=== PATIENT | female | born 1980 | race Caucasian/White ===

== ENCOUNTER 2023-10-21 19:01 | Inpatient (IN) | payer OTHER, SELFPAY ==
[2023-10-21] VITALS (8 sets, daily range): BP systolic 105–143; BP diastolic 66–90; BMI 42.2; BMI 42.3
[2023-10-21 14:00] LABS: Urine Albumin Negative (Neg - Trace); Urine Bilirubin Negative (Negative); Urine Character Clear (Clear); Urine Color Yellow; Urine Glucose Negative (Negative); Urine Ketone Negative (Negative); Urine Leukocyte 1+ (Negative); Urine Nitrite Negative (Negative); Urine Occult Blood Negative (Negative); Urine Specific Gravity 1.025 (<1.030); Urine Urobilinogen Negative (Neg - 1+)
[2023-10-21 14:37] LABS: Urine Red Blood Cell 0-2 /HPF (0-2); Urine Squamous Cell >30 /LPF (Few); Urine White Cell 0-2 /HPF (0-5)
[2023-10-21 14:48] LABS: HCG, Urine Qualitative Screen Negative
[2023-10-21 14:54] LABS: % Basophils 0.4 % (0-2); % Eosinophils 1.1 % (0-6); % Immature Granulocytes 0.3 % (0-0.5); % Lymphocytes 26.7 % (20.5-51.1); % Neutrophils 65.5 % (42.2-75.2); Absolute Eosinophils 0.1 10^3/uL (0-0.7); Absolute Lymphocytes 1.9 10^3/uL (1.2-3.4); Absolute Monocytes 0.4 10^3/uL (0.1-0.6); Absolute Neutrophils 4.6 10^3/uL (1.4-6.5); Hematocrit 32.4 % (37.0-47.0); Hemoglobin 11.2 g/dL (12.0-16.0); Mean Corp Hgb Conc. 34.6 g/dL (33.0-37.0); Mean Corpuscular Hgb 28.1 pg (27.0-31.0); Mean Corpuscular Volume 81.4 fL (81.0-99.0); Mean Platelet Volume 9.1 fL (7.4-10.4); Nucleated Red Blood Cells % 0 %; Platelet Count 275 10^3/uL (130-400); Red Blood Cell Count 3.98 10^6/uL (4.20-5.40); Red Cell Dist. Width 13.3 % (11.5-14.5)
[2023-10-21 15:03] LABS: HCG, Serum Qualitative Screen Negative
[2023-10-21 15:07] LABS: ALT (SGPT) 19 U/L (0-35); AST (SGOT) 21 U/L (14-36); Albumin 3.8 g/dl (3.5-5.0); Alkaline Phosphatase 65 U/L (38-126); Blood Urea Nitrogen 15 mg/dl (7-17); Calcium 9.3 mg/dl (8.4-10.2); Carbon Dioxide 25 mmol/L (22-30); Chloride 105 mmol/L (98-107); Estimated Creatinine Clearance > 125 ml/min; Glucose 88 mg/dl (70-99); Potassium 4.9 mmol/L (3.5-5.1); Sodium 134 mmol/L (135-145); Total Bilirubin 0.4 mg/dl (0.2-1.3); Total Protein 6.2 g/dl (6.3-8.2); eGFR > 60.00
[2023-10-21] MEDS: TORADOL 30 MG IV (15:36)
--- NOTE | 2023-10-21 16:19 | ED.GENMED ---
History of Present Illness
<Aayush Phan Jr., PA-C - Last Filed: 10/21/23 18:09>
General
Chief Complaint: Flank Pain
Source: patient
Exam Limitations: none
Time Seen by Provider: 10/21/23 14:24
Nursing documentation reviewed up to this point in time: agreed with
History of Present Illness
History of Present Illness:
43-year-old female presenting with right lower quadrant abdominal pain initially intermittent. She has been seen by compugraph operator that she has been. Was unsure of the specific cause of her symptoms. Over the trace admission. Denies any fevers chest
pain.
Review of Systems
<Aayush Phan Jr., PA-C - Last Filed: 10/21/23 18:09>
Review of Systems
Allergies reviewed?: Yes
All Other Systems: ROS reviewed and negative except as documented in HPI and ROS
Phy Exam
<Aayush Phan Jr., PA-C - Last Filed: 10/21/23 18:09>
Physical Exam
Physical Exam:
GENERAL: Alert , in no apparent distress
EYE: pupils equal and reactive
NECK: Supple, no significant adenopathy.
ENT: o/p clr, mmm.
CARDIAC: Regular rate and rhythm .
LUNGS: Clear breath sounds bilaterally, no acute respiratory distress, no wheezes/rales/rhonchi
ABDOMEN: Reproducible right lower quadrant pelvic pain soft benignOtherwise.
NEUROLOGICAL: Alert and oriented, no focal neuro deficits
SKIN: Warm and dry, skin intact.
MUSCULOSKELETAL: No edema, well perfused.
PSYCH: Normal and appropriate interaction.
Course
<Aayush Phan Jr., PA-C - Last Filed: 10/21/23 18:09>
Orders/Labs/Results
Orders:
Orders
10/21/23 13:52
HCG, Urine Qualitative Screen Urgent
Date Specimen was Collected: 10/21/23
Time Specimen was Collected: 13:46
Comment: ADD ON
Urinalysis Reflex To Culture Urgent
Date Specimen was Collected: 10/21/23
Time Specimen was Collected: 13:46
Urine Microscopic Reflex Cult Urgent
Urine Culture Urgent
CLARISA Source: U
Specimen Description:
Date Specimen was Collected: 10/21/23
Time Specimen was Collected: 13:46
10/21/23 14:24
Add On- LAB Urgent
Tests Added?: urine hcg
10/21/23 14:25
Test Result ONCE
10/21/23 14:42
Beta Hcg Serum Qualitative Screen [HCG, Serum Qualitative Screen] Urgent
CBC/With Diff [Complete Blood Count/With Diff] Urgent
CMP [Comprehensive Metabolic Panel] Urgent
10/21/23 15:20
CT Abd/Pel (IV only)-DH only Urgent
Comment:
Reason For Exam: RLQ pain
10/21/23 15:21
Ketorolac [Toradol] 30 mg IV NOW STA
10/21/23 17:55
Piperacillin/Tazo 3.375 Gram [Zosyn] 3.375 gram in 50 ml IV NOW
10/21/23 18:26
Admit/Transfer Patient As Directed
Co-Sign Provider:
Level of Care: Inpatient admission
Assign to:: Medical/Surgical
Physician / Group: Brandi Parker
Diagnosis: possible acute appendicitis
Reason for Hospitalization: possible acute appendicitis - IVF, IV Abx, pain control with IV agents, surgical
evaluation
Expected length of stay greater than two midnights?: Yes
ELOS- Estimated Length of Stay in days: 2
I certify the patient meets the requirements for IP care: Yes
Code Status As Directed
Resuscitation Status: Full Code
PRN Pain Medication Management As Directed
May give lesser potent ordered pain med per pt: Yes
preference::
Protocol:: Medication orders for pain may be administered in a
manner that supports deferring to patient preference
when the pt is:
- Requesting an ordered lesser potent pain medication.
Least to most potent pain medications are defined
as: acetaminophen < NSAID < tramadol < opioids
(morphine, oxycodone, hydromorphone).
- Requesting a lesser dose of the same medication IF
ORDERED.
- Requesting a less intrusive route of administration
if both routes are prescribed by the provider (PO <
IV).
Abnormal Lab Results
10/21/23 10/21/23
13:52 14:42
RBC 3.98 L 10^6/uL
(4.20-5.40)
Hgb 11.2 L g/dL
(12.0-16.0)
Hct 32.4 L %
(37.0-47.0)
Sodium 134 L mmol/L
(135-145)
Total Protein 6.2 L g/dl
(6.3-8.2)
Leukocyte Esterase Rfl 1+ A
(Negative)
10/21/23 14:42
10/21/23 14:42
Vital Signs
Initial and Last Documented VS:
Initial Vital Signs
Temp Pulse Resp BP Pulse Ox
98 F 76 18 143/88 98
10/21/23 13:42 10/21/23 13:42 10/21/23 13:42 10/21/23 13:42 10/21/23 13:42
Last Documented Vital Signs
Temp Pulse Resp BP Pulse Ox
98 F 71 18 114/76 97
10/21/23 13:42 10/21/23 17:19 10/21/23 17:19 10/21/23 19:00 10/21/23 19:00
<Joaquim Boyd, DO - Last Filed: 10/21/23 19:49>
Orders/Labs/Results
Orders:
Orders
10/21/23 13:52
HCG, Urine Qualitative Screen Urgent
Date Specimen was Collected: 10/21/23
Time Specimen was Collected: 13:46
Comment: ADD ON
Urinalysis Reflex To Culture Urgent
Date Specimen was Collected: 10/21/23
Time Specimen was Collected: 13:46
Urine Microscopic Reflex Cult Urgent
Urine Culture Urgent
CLARISA Source: U
Specimen Description:
Date Specimen was Collected: 10/21/23
Time Specimen was Collected: 13:46
10/21/23 14:24
Add On- LAB Urgent
Tests Added?: urine hcg
10/21/23 14:25
Test Result ONCE
10/21/23 14:42
Beta Hcg Serum Qualitative Screen [HCG, Serum Qualitative Screen] Urgent
CBC/With Diff [Complete Blood Count/With Diff] Urgent
CMP [Comprehensive Metabolic Panel] Urgent
10/21/23 15:20
CT Abd/Pel (IV only)-DH only Urgent
Comment:
Reason For Exam: RLQ pain
10/21/23 15:21
Ketorolac [Toradol] 30 mg IV NOW STA
10/21/23 17:55
Piperacillin/Tazo 3.375 Gram [Zosyn] 3.375 gram in 50 ml IV NOW
10/21/23 18:26
Admit/Transfer Patient As Directed
Co-Sign Provider:
Level of Care: Inpatient admission
Assign to:: Medical/Surgical
Physician / Group: Brandi Taylor - Hospitalists
Diagnosis: possible acute appendicitis
Reason for Hospitalization: possible acute appendicitis - IVF, IV Abx, pain control with IV agents, surgical
evaluation
Expected length of stay greater than two midnights?: Yes
ELOS- Estimated Length of Stay in days: 2
I certify the patient meets the requirements for IP care: Yes
Code Status As Directed
Resuscitation Status: Full Code
PRN Pain Medication Management As Directed
May give lesser potent ordered pain med per pt: Yes
preference::
Protocol:: Medication orders for pain may be administered in a
manner that supports deferring to patient preference
when the pt is:
- Requesting an ordered lesser potent pain medication.
Least to most potent pain medications are defined
as: acetaminophen < NSAID < tramadol < opioids
(morphine, oxycodone, hydromorphone).
- Requesting a lesser dose of the same medication IF
ORDERED.
- Requesting a less intrusive route of administration
if both routes are prescribed by the provider (PO <
IV).
Abnormal Lab Results
10/21/23 10/21/23
13:52 14:42
RBC 3.98 L 10^6/uL
(4.20-5.40)
Hgb 11.2 L g/dL
(12.0-16.0)
Hct 32.4 L %
(37.0-47.0)
Sodium 134 L mmol/L
(135-145)
Total Protein 6.2 L g/dl
(6.3-8.2)
Leukocyte Esterase Rfl 1+ A
(Negative)
10/21/23 14:42
10/21/23 14:42
Vital Signs
Initial and Last Documented VS:
Initial Vital Signs
Temp Pulse Resp BP Pulse Ox
98 F 76 18 143/88 98
10/21/23 13:42 10/21/23 13:42 10/21/23 13:42 10/21/23 13:42 10/21/23 13:42
Last Documented Vital Signs
Temp Pulse Resp BP Pulse Ox
98 F 71 18 114/76 97
10/21/23 13:42 10/21/23 17:19 10/21/23 17:19 10/21/23 19:00 10/21/23 19:00
<Aayush Phan Jr., PA-C - Last Filed: 10/21/23 18:09>
MDM/Problems Addressed
MDM/Problems Addressed:
41-year-old female presenting to the emergency department concerns of ongoing right lower quadrant abdominal pain intermittent over the past few weeks or so the past few days. Had recent pelvic ultrasound showing right-sided sided ovarian cyst but
was concerned this was potentially an alternate abdominal process. Denies urinary symptoms change in bowel movements fevers chest pain or shortness of breath. CT scan showing findings possibly consistent with appendicitis though it is somewhat
unclear. Case was discussed with general surgery recommends if symptoms are ongoing progressive should watch overnight n.p.o. at midnight and reassess in the morning for possibility of surgery though timeframe does not sound in line with acute
appendicitis. This was discussed with patient who elected to stay overnight for reassessment in the morning. Stable throughout ER stay. started On antibiotics.
<Aayush Phan Jr., PA-C - Last Filed: 10/21/23 18:09>
*Critical Care Note
Total Time (30-74mins, 75-104mins- exclusive of procedures): Not Applicable
ED Attending Note
<Aayush Phan Jr., PA-C - Last Filed: 10/21/23 18:09>
-
Portions of this chart may have been created with voice recognition software.� Occasional wrong word or��sound alike� substitutions may have occurred due to the inherent limitations of voice recognition software.
<Joaquim Boyd DO - Last Filed: 10/21/23 19:49>
ED Attending Note
I performed the substantive portion of visit, reviewed & personally made and approve the management plan that is documented in note by myself or CALIN.: Yes
ED Attending Note:
Equivocal findings for appendicitis by CT. Case reviewed with CALIN. Admit for surgical evaluation and continued monitoring
Discharge Plan
Departure
Patient Disposition: Admit
Date of Disposition: 10/21/23
Time of Disposition: 18:08
Admit to: Med/Surg
Admit to doctor: Renard
Presentation/result/management discussed w/ accepting MD/DO: Hospitalist
Patient with high blood pressure during this ER visit?: No
Condition: Good
Covid-19: Not Applicable
Discharge Problem:
Right lower quadrant abdominal pain
Interventions
Interventions:
*Risk Screen - Suicide Last Done: 10/21/23 13:42
*General Assessment Last Done: 10/21/23 13:42
*Neglect/Abuse Screening Last Done: 10/21/23 13:42
ED- Fall Risk Assessment Last Done: 10/21/23 19:45
*ED COVID-19 Vaccine History Last Done: 10/21/23 14:35
*Nursing Disposition Last Done: 10/21/23 19:45
EV-Nzbzlt-Khmsbvmyqq Assessment Last Done: 10/21/23 14:37
ED-Female Genitourinary Assessment Last Done: 10/21/23 14:37
Discharge Date and Time
Discharge Date/Time: 10/21/23 19:45
--- NOTE | 2023-10-21 18:18 | HPS.HSE ---
Family Physician
-
Family Physician: Jason Madsen
Chief Complaint
-
abd pain
History of Present Illness
43 y/o F, hx of obesity on Wegovy, former smoker, presents to ER for Right lower quadrant. Reports pain is 7/10, RLQ, with some radiation. Pain is intermittent in nature. Feels like a sharp pain. + associated nausea/vomiting. No fever/chills. No
other complaints. She is on Wegovy for past 6 months, no new recent meds. No changes in bowel habits (last BM 2 days ago). No NSAIDs.
Medical History
Past Medical History
Past Medical History: Reports Other (obesity on Wegovy, former smoker)
Past Surgical History: Reports
Social History
Tobacco: Former Smoker
Alcohol: Occasional
Drug: None
Personal:
Living: With Family
Employment: Employed
Family History
Family History: Not pertinent
Allergies / Home Medications
Allergies reflects when Allergies were last updated in [facility].
Home Medications with original date entered in [facility]
Allergy/Medication List:
Allergies
Allergy/AdvReac Type Severity Reaction Status Date / Time
No Known Allergies Allergy Unverified 10/21/23 13:42
Home Medications
semaglutide (weight loss) 2.4 mg/0.75 mL subcutaneous pen injector (Wegovy) 2.4 mg SC WE 10/21/23
Review of Systems
-
A 12 point ROS was completed and negative except as noted: Yes
Physical Exam
Vital Signs
Vital Signs
Temp Pulse Resp BP Pulse Ox
98 F 71 18 120/84 97
10/21/23 13:42 10/21/23 17:19 10/21/23 17:19 10/21/23 17:16 10/21/23 17:17
Physical Exam
General: Pain and Obese
HEENT: NormoCephalic and Anicteric
Respiratory: No Wheezes or Rales
Cardiac: S1/S2 and Regular Rhythm
GI: Non Distended and Tender (RLQ)
Neuro: AO x 3
Hematologic/Lymphatic: No Lymphadenopathy
Psych: Calm
Laboratory Results
-
10/21/23 14:42
10/21/23 14:42
Laboratory Results
Total Bilirubin 0.4 mg/dl (0.2-1.3) 10/21/23 14:42
AST 21 U/L (14-36) 10/21/23 14:42
ALT 19 U/L (0-35) 10/21/23 14:42
Alkaline Phosphatase 65 U/L (38-126) 10/21/23 14:42
Data Reviewed
-
CT Scan: Report Reviewed by me
Lab Data: Labs Reviewed by me
Impression/Plan
-
Assessment:
RLQ pain
- CT: rounded distal appendix, measuring up to 14 mm. Perhaps minimal subtle stranding adjacent to the enlarged distal appendix. One consideration would be a distal tip appendicitis. Main differential consideration would be a focal mucocele.
- GS consulted; recommended NPO p MN and they will evaluate in AM
- for now will continue pain control
- continue IVF
- continue IV Zosyn
Morbid Obesity d/t excess calories
- encourage weight loss
- she is on Wegovy x 6 months, tolerating well
- OP f/u
Anemia, unknown chronicity
- check workup labs
DVT ppx: SCDs
Code: Full
[2023-10-21] MEDS: ZOSYN 50 IV (18:34)
[2023-10-21] MEDS: NSS 1000 IV (20:44)
[2023-10-21] MEDS: TYLENOL 650 MG PO (21:44)
[2023-10-22] MEDS: ZOSYN 50 IV ×2 (00:27→05:18)
[2023-10-22 06:49] LABS: % Basophils 0.6 % (0-2); % Eosinophils 1.3 % (0-6); % Immature Granulocytes 0.4 % (0-0.5); % Lymphocytes 29.2 % (20.5-51.1); % Monocytes 5.7 % (1.7-9.3); % Neutrophils 62.8 % (42.2-75.2); Absolute Eosinophils 0.1 10^3/uL (0-0.7); Absolute Lymphocytes 1.6 10^3/uL (1.2-3.4); Absolute Monocytes 0.3 10^3/uL (0.1-0.6); Absolute Neutrophils 3.4 10^3/uL (1.4-6.5); Hematocrit 33.3 % (37.0-47.0); Hemoglobin 11.2 g/dL (12.0-16.0); Mean Corp Hgb Conc. 33.6 g/dL (33.0-37.0); Mean Corpuscular Hgb 28.4 pg (27.0-31.0); Mean Corpuscular Volume 84.5 fL (81.0-99.0); Mean Platelet Volume 9.1 fL (7.4-10.4); Nucleated Red Blood Cells % 0 %; Platelet Count 226 10^3/uL (130-400); Red Blood Cell Count 3.94 10^6/uL (4.20-5.40); Red Cell Dist. Width 13.2 % (11.5-14.5); White Blood Cell Count 5.4 10^3/uL (4.8-10.8)
--- NOTE | 2023-10-22 06:58 | PTCARENOTE ---
pt admit from ER 19:45, IVF infusing, vs WNL. Pt pain 3/10 RLQ , oriented to unit
[2023-10-22 07:17] VITALS: BP 135/75
[2023-10-22 07:23] LABS: ALT (SGPT) 24 U/L (0-35); AST (SGOT) 34 U/L (14-36); Albumin 3.3 g/dl (3.5-5.0); Alkaline Phosphatase 64 U/L (38-126); Blood Urea Nitrogen 12 mg/dl (7-17); Calcium 8.5 mg/dl (8.4-10.2); Carbon Dioxide 25 mmol/L (22-30); Chloride 106 mmol/L (98-107); Estimated Creatinine Clearance > 125 ml/min; Glucose 80 mg/dl (70-99); Iron 61 ug/dl (37-170); Potassium 3.8 mmol/L (3.5-5.1); Sodium 136 mmol/L (135-145); Total Bilirubin 0.7 mg/dl (0.2-1.3); Total Protein 5.7 g/dl (6.3-8.2); eGFR > 60.00
[2023-10-22] MEDS: NSS 1000 IV (07:34)
[2023-10-22 07:36] LABS: Percent Saturation 24 % (20-50); Total Iron Binding Capacity 249 ug/dl (265-497)
--- NOTE | 2023-10-22 07:38 | CON.GS ---
Addendum entered and electronically signed by Perry Haney MD 10/22/23 12:24:
I saw and examined the patient.
The Client Technologies Specialist's note was reviewed and I agree with the note.
Comment: 1 month abd pain intermittent, mostly RLQ. Notably worsened yesterday, today feels better. AFVSS, exam benign, labs unremarkable, CT with dilated distal appendix without stranding and without fecalith. Rec outpt f/u to discuss appendiceal
abnormality. Recommend Property Man consult and eval. GS will s/o pls call with ?s. My office info was added to DC instructions.
Original Note:
Consultation
-
Date/Time Consultation Performed: 10/22/23
Performing Provider: Billy Paredes MD ; Perry Haney MD
Reason for Consultation: Abdominal pain
Medical History
-
Chief Complaint: Abdominal pain
History of Present Illness:
43-year-old female, currently on Wegovy to help with weight loss, former smoker presented to the [facility] ER with right lower quadrant pain. Patient reports that she had intermittent pain for almost a month but yesterday she had
continuous sharp, 7 out of 10 pain with some radiation to the whole right sided abdomen. She has some nausea with earlier episodes but no recent nausea, vomiting, fevers/chills. Denies any recent new medications, surgeries, any dietary changes.
She reports her last bowel movement was 2 days before coming to the hospital.
Past Medical History
Past Medical History: Other (Obesity)
Past Surgical History: Other ( section)
Social History
Tobacco: Former Smoker
Alcohol: Occasional
Drug: None
Living: With Family
Employment: Employed
Family History
Family History: Reviewed & Not Pertinent (Mother diverticulosis)
Allergies / Home Medications
Allergy/AdvReac Type Severity Reaction Status Date / Time
No Known Allergies Allergy Unverified 10/21/23 13:42
�Medication �Instructions �Recorded �Confirmed �Type
semaglutide (weight loss) 2.4 2.4 mg SC WE Diabetes 10/21/23 10/21/23 History
mg/0.75 mL subcutaneous pen
injector (Wegovy)
Review of Systems
-
History Source: Patient
A 10 point review of systems was completed, and was negative except as per HPI.
Physical Exam
Vital Signs
Temp Pulse Resp BP Pulse Ox
98.1 F 74 18 134/69 98
10/21/23 22:53 10/21/23 22:53 10/21/23 22:53 10/21/23 22:53 10/21/23 22:53
10/21/23 10/22/23 10/23/23
06:59 06:59 06:59
Actual Weight 126.127 kg
Body Mass Index (BMI) 42.3
Lab Results
10/22/23 05:51
10/22/23 05:51
WBC 5.4 10^3/uL (4.8-10.8) 10/22/23 05:51
Hgb 11.2 g/dL (12.0-16.0) L 10/22/23 05:51
Hct 33.3 % (37.0-47.0) L 10/22/23 05:51
Plt Count 226 10^3/uL (130-400) 10/22/23 05:51
Abs Immat Gran (auto) 0.0 10^3/uL (0-0.05) 10/22/23 05:51
Neutrophils % 62.8 % (42.2-75.2) 10/22/23 05:51
Physical Exam
General: Well Developed and Well Nourished
Cardiac: Regular Rhythm
GI: Soft, Non Tender and Non Distended
Neuro: Awake, Alert and Oriented
Psych: Calm
Data Reviewed
-
CT Scan: Image Personally Visualized and interpreted, Report Reviewed by me, Discussed with Physician and Discussed with Patient
Labs: Labs Reviewed by me, Discussed with Physician and Discussed with Patient
Assessment / Plan
-
43-year-old female currently on Wegovy for weight loss presented to the emergency department with complaints of right lower quadrant pain with intermittent nausea/vomiting. No fevers/chills.
Right lower quadrant abdominal pain
- CT: Rounded distal appendix, measuring up to 14 mm. Perhaps minimal subtle stranding adjacent to the enlarged distal appendix. One consideration would be a distal tip appendicitis. Main differential consideration would be a focal mucocele.
- No concern for acute appendicitis and will follow up outpatient regarding mucocele.
- prior US obtained 2 weeks ago did show R paraovarian complex structure
- Recommendation for KNUCKLER evaluation
- okay to start diet as tolerated
DVT ppx: SCDs
[2023-10-22 07:52] LABS: Ferritin 37.2 ng/ml (6.24-137)
[2023-10-22 08:24] LABS: Folate 8.7 ng/ml (2.76-20); Vitamin B12 400 pg/ml (239-931)
--- NOTE | 2023-10-22 09:49 | W.PN.HOSP.TC ---
Today's Communication/Plan
-
beef farmer workup and beef farmer consultation
Assessment / Plan
Assessment / Plan
Assessment:
RLQ pain
- CT: rounded distal appendix, measuring up to 14 mm. Perhaps minimal subtle stranding adjacent to the enlarged distal appendix. One consideration would be a distal tip appendicitis. Main differential consideration would be a focal mucocele.
- GS consulted; no concern for acute appendicitis and will follow up outpatient regarding mucocele.
- CEMENT TRUCK LOADER consulted; recommended pelvic/TV US
- prior US obtained 2 weeks ago did show R paraovarian complex structure measuring 1.6 x 1.2 x 1.6 cm
- stop IV Abx and ok for diet for now
Morbid Obesity d/t excess calories
- encourage weight loss
- she is on Wegovy x 6 months, tolerating well
- OP f/u
Anemia, unknown chronicity
- anemia indices normal.
- OP Heme f/u
DVT ppx: SCDs
Code: Full
Anticipated Discharge: Within 24 hours
Subjective/Interval History
-
Date of Service: October 22, 2023
right lower quadrant pain slightly improving but not resolved
reports prior Marketing Services Vice President evaluation, no diagnosis given
prior US report did not R paraovarian complex structure
Objective Data
-
Labs:
Laboratory Results
10/22/23
05:51
WBC 5.4
Hgb 11.2 L
Hct 33.3 L
Plt Count 226
Sodium 136
Potassium 3.8
Chloride 106
Carbon Dioxide 25
BUN 12
Creatinine 0.8
Glucose 80
Calcium 8.5
Total Bilirubin 0.7
AST 34
ALT 24
Alkaline Phosphatase 64
Vital Signs:
Vital Signs
Temp Pulse Resp BP Pulse Ox
97.5 F 72 15 135/75 97
10/22/23 07:17 10/22/23 07:17 10/22/23 07:17 10/22/23 07:17 10/22/23 07:17
I&O
10/21/23 10/22/23 10/23/23
06:59 06:59 06:59
Intake Total 980 / 980
Output Total 600 / 600
Balance 380 / 380
Physical Exam
-
General: No Apparent Distress
HEENT: Normocephalic and Atraumatic
Respiratory: Negative Wheezes
Cardiac: Regular Rhythm and S1/S2
GI: Other (RLQ tenderness to palpation)
Genito-urinary: No Costovertebral Tender
Musculoskeletal: No Edema
Neuro: AO x 3
Hematologic / Lymphatic: No Lymphadenopathy
Psych: Calm
Data Reviewed
-
Total Time Spent with Patient (in minutes): 45
Labs: Labs Reviewed by me
--- NOTE | 2023-10-22 14:15 | CM ---
Initial assessment completed with patient who lives with her in a 3rd floor apartment with no elevator and 15 outside steps to enter. No DME or in-home services. VISUAL SPECIALIST was independent, drove and worked. No history of Psychiatric
hospitalizations. Pharmacy is [facility] at [address] [place] [address] in [place] and PCP is Dr. Jason Madsen. Anticipate discharge home with no needs.
[2023-10-22] MEDS: TYLENOL 650 MG PO (14:44)
[2023-10-22 14:45] VITALS: BP 148/89
--- NOTE | 2023-10-22 16:44 | CON.MD ---
Consultation - Medical
-
43 yo with h/o intermittent abd pain since May or June - usu right sided. Has been on Wegovy for last 6M - she does not think it is from [place]. No AUB - no vag d/c - no new partners. Had u/s with Dr. Glynn her LOADING MANAGER bc they were
planning BTL. It was done in mid September and showed small bilt ov cysts - looked like fnt that may resolved with time. Plan was f/u u/s in 3 months. Looking at that report, I would agree with f/u u/s in 2-3 months. she came into ER bc pain was more
consistent and more intense. Since she has been admitted, pain has improved. CT in ER showed R functional cyst only. Afebrile at home. No fever in hospital. Normal WBC - mild anemia. HCG neg.
PMH - obesity
PSH - Csection x 1
All NKDA
Meds - Wegovy
P OB H - NSV x `1 -- C section x 1
P LOADING MANAGER H - No problems per pt
PE - AFVSS
Lungs clear
CV - RRR
Abd - obese - soft - non tender - + BS - no rebound or guarding
Pelvic - Normal palp cervix - uterus non palp - non tender - no CMT
A/P - Abd pain - improving
U/s done but not yet read
From prev u/s and CT scan should rec f/u with Dr. Glynn - her console attendant - as out pt for mgmt of cyst
Disc with pt - imaging back so far indicates benign fnt cyst
Will await u/s done today to decide plan - prob ok to d/c with this u/s shows benign appearing cysts
See dictated note
--- NOTE | 2023-10-22 20:17 | W.PN.UPDATE ---
Update Note
Progress Note Update
U/s report -
Small fibroid noted
Simple R ovarian cyst
Appears to be fnt cyst of left ovary
Indistinct area on right 2-3 cm - limited by bowel. On CT looked like poss lower ut segment fibroid
Consider observation if clinically stable. Poss out pt MRI with her INDUSTRIAL MAINTENANCE MANAGER
Make sure pt has copy of CT and U/s report and disc for her INDUSTRIAL MAINTENANCE MANAGER.
Pt ok to be d/c from INDUSTRIAL MAINTENANCE MANAGER standpoint with f/u as out pt with her acute care nurse
[2023-10-22 23:03] VITALS: BP 128/69
[2023-10-23 06:40] LABS: Hemoglobin 11.6 g/dL (12.0-16.0); Mean Corp Hgb Conc. 34.1 g/dL (33.0-37.0); Mean Corpuscular Hgb 28.1 pg (27.0-31.0); Mean Corpuscular Volume 82.3 fL (81.0-99.0); Mean Platelet Volume 9.4 fL (7.4-10.4); Platelet Count 274 10^3/uL (130-400); Red Blood Cell Count 4.13 10^6/uL (4.20-5.40); Red Cell Dist. Width 13.4 % (11.5-14.5)
[2023-10-23 06:58] LABS: Blood Urea Nitrogen 9 mg/dl (7-17); Calcium 8.9 mg/dl (8.4-10.2); Carbon Dioxide 22 mmol/L (22-30); Chloride 108 mmol/L (98-107); Estimated Creatinine Clearance > 125 ml/min; Glucose 89 mg/dl (70-99); Potassium 4.3 mmol/L (3.5-5.1); Sodium 137 mmol/L (135-145); eGFR > 60.00
[2023-10-23 07:15] VITALS: BP 114/89
[2023-10-23 10:15] VITALS: BP 139/78
--- NOTE | 2023-10-23 11:01 | W.PN.HOSP.TC ---
Today's Communication/Plan
-
dc to home
Assessment / Plan
Assessment / Plan
Assessment:
RLQ pain
- CT: rounded distal appendix, measuring up to 14 mm. Perhaps minimal subtle stranding adjacent to the enlarged distal appendix. One consideration would be a distal tip appendicitis. Main differential consideration would be a focal mucocele.
- GS consulted; no concern for acute appendicitis and will follow up outpatient regarding mucocele.
- TICKET SALES SUPERVISOR consulted
- US: Single focal myometrial mass measuring up to 2.3 cm in diameter most likely representing fibroid. No other definite myometrial lesions are seen. Simple right ovarian cyst measuring up to 2.7 cm in diameter. As above, there is area of
indeterminate heterogeneous echogenicity along the right adnexa. No specific findings to definitively confirm ovarian or fallopian tube process. As this area is indistinct on both the prior CT and this examination, recommend pelvic MRI if there is
persistent clinical concern. Very small minimally complex left ovarian cyst, probable involuting functional cyst or small hemorrhagic cyst.
- possible fibroids; MRI recommended outpatient
- patient given copy of CD
- can use prn NSAIDs
Morbid Obesity d/t excess calories
- encourage weight loss
- she is on Wegovy x 6 months, tolerating well
- OP f/u
Anemia, unknown chronicity
- anemia indices normal.
- OP Heme f/u
DVT ppx: SCDs
Code: Full
More than 30 minutes spent in discharge including
Final examination of the patient
Summarizing hospital stay
Instructions for continuing care to all relevant caregivers
Preparation of discharge records, prescriptions, and referral forms
Total time spent (in minutes):41
Anticipated Discharge: Today
Subjective/Interval History
-
Date of Service: October 23, 2023
pain bearable, denies any new complaints
Objective Data
-
Labs:
Laboratory Results
10/23/23
05:54
WBC 6.0
Hgb 11.6 L
Hct 34.0 L
Plt Count 274 D
Sodium 137
Potassium 4.3
Chloride 108 H
Carbon Dioxide 22
BUN 9
Creatinine 0.8
Glucose 89
Calcium 8.9
Vital Signs:
Vital Signs
Temp Pulse Resp BP Pulse Ox
97.8 F 75 18 139/78 99
10/23/23 10:15 10/23/23 10:15 10/23/23 10:15 10/23/23 10:15 10/23/23 10:15
I&O
10/22/23 10/23/23 10/24/23
06:59 06:59 06:59
Intake Total 980 / 980 2520 / 2520
Output Total 600 / 600
Balance 380 / 380 2520 / 2520
Physical Exam
-
General: No Apparent Distress
HEENT: Normocephalic and Atraumatic
Respiratory: Negative Wheezes
Cardiac: Regular Rhythm and S1/S2
GI: Soft
Musculoskeletal: No Edema
Neuro: AO x 3
Hematologic / Lymphatic: No Lymphadenopathy
Data Reviewed
-
Total Time Spent with Patient (in minutes): 41
Labs: Labs Reviewed by me
--- NOTE | 2023-10-23 11:05 | W.DS.TRANS ---
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
-
Discharge Instructions:
Discharge Diagnosis/Procedures RLQ possibly fibroids, no appendicitis
Diet Regular
Activity As tolerated
Bathing Restrictions None
Instructions:
Stand-Alone Forms:
Changes to Home Medications: No
Discharge Medications:
DC Medications w/original date entered in [facility]
semaglutide (weight loss) 2.4 mg/0.75 mL subcutaneous pen injector (Wegovy) 2.4 mg SC WE Diabetes 10/21/23
ibuprofen 200 mg tablet (Motrin IB) 200 mg PO Q6H PRN Pain #30 tabs 10/23/23
Home Medication Changes
Pending Results: No
Total time spent discharging patient (in min): 42
== END 2023-10-23 11:58 | disposition home or self-care (01) | DRG 760 ==
LOC: 2 SOUTH 19:01
PROVIDERS: Emergency Medicine; Physician Assistant; ADMITTING PHYSICIAN Internal Medicine; CONSULT PHYSICIAN Obstetrics & Gynecology Gynecology; CONSULT PHYSICIAN Surgery; EMERGENCY PHYSICIAN Emergency Medicine; FAMILY PHYSICIAN Family Medicine
DX: N83.291 Other ovarian cyst, right side (principal); Z68.41 Body mass index [BMI] 40.0-44.9, adult; E66.01 Morbid (severe) obesity due to excess calories; D64.9 Anemia, unspecified; D25.9 Leiomyoma of uterus, unspecified; K38.8 Other specified diseases of appendix; Z87.891 Personal history of nicotine dependence; Z79.899 Other long term (current) drug therapy
CPT/HCPCS: 74177; 76830; 76856; 80048; 80053; 81003; 81015; 81025; 82607; 82728; 82746; 83540; 83550; 84703; 85025; 85027; 87086; 96374; 99285; Q9967